=== PATIENT | female | born 1975 | race Caucasian/White ===

== ENCOUNTER 2016-11-17 18:28 | Emergency (ER) | payer SELFPAY ==
[~2016-11-17] VITALS: Ht 167.6 cm; Wt 76.2 kg
[~2016-11-17 18:28] MED LIST: TYLENOL
[2016-11-17 18:47] VITALS: BP 109/70
--- NOTE | 2016-11-17 21:45 | NUR ---
TO ER BED 3
[2016-11-17] MEDS ORDERED: KETOROLAC 30 MG/ML VIAL IM ONE (21:55)
--- NOTE | 2016-11-17 22:00 | NUR ---
PT IS 41/F BIB TO ED WITH C/O GEN WEAKNESS AND HEADACHE X3 DAYS. C/O NAUSEA. PT STATES NO MED HX. DENIES V/D; SKIN IS PINK/WARM/DRY; AAOX4 WITH EVEN AND STEADY GAIT; LUNGS CLEAR BL; HR EVEN AND REGULAR; PT DENIES ANY FEVER, CP, SOB, OR COUGH AT THIS TIME; PATIENT STATES PAIN OF 8/10 AT THIS TIME; VSS; PATIENT POSITIONED FOR COMFORT; HOB ELEVATED; BEDRAILS UP X2; BED DOWN. ER MD MADE AWARE OF PT STATUS.
[2016-11-17 23:39] VITALS: BP 112/69
--- NOTE | 2016-11-17 23:39 | NUR ---
Patient discharged with v/s stable. Written and verbal after care instructions given and explained. Patient alert, oriented and verbalized understanding of instructions. Ambulatory with steady gait. All questions addressed prior to discharge. ID band removed. Patient advised to follow up with PMD. Rx of ACETAMINOPHEN AND [employer] PRENATA MULTI given. Patient educated on indication of medication including possible reaction and side effects. Opportunity to ask questions provided and answered.
== END 2016-11-17 23:39 | disposition home or self-care (01) ==
LOC: MED 18:28
DX: O26.811 Pregnancy related exhaustion and fatigue, first trimester (principal); Z3A.01 Less than 8 weeks gestation of pregnancy

== ENCOUNTER 2016-12-05 10:16 | Emergency (ER) | payer SELFPAY ==
[~2016-12-05] VITALS: Ht 167.6 cm; Wt 73.5 kg
[2016-12-05 10:24] VITALS: BP 135/72
--- NOTE | 2016-12-05 10:49 | NUR ---
PATIENT TO BED 5 AT THIS TIME.
--- NOTE | 2016-12-05 10:50 | NUR ---
41/F BIB FAMILY C/O LOWER BACK PAIN x ONE WEEK. PT STATES SHE IS 9 WEEKS ;PT STATES SHE HAS CONSTANT PAIN AT LOWER BACK AND ABDOMEN;DENIES VAGINAL BLEEDING/SPOTTING;DENIES SOB/CP/DIZZINESS/HEADACHE/F.PT STATES SHE VOMITTED EVERY MORNING;AAOX;NO ACUTE DISTRESS NOTED AT THIS TIME;SKIN WARM TO TOUCH;UNLABORED BREATHING;HOB ELEVTED;SAAFETY PRECAUTION INSTITUTED;;NEEDS ATTENDED;MD MADE AWARE OF PT'S CONDITION.
--- NOTE | 2016-12-05 11:05 | NUR ---
US AT BEDSIDE
--- NOTE | 2016-12-05 11:10 | NUR ---
DR GUTIERREZ AT BEDSIDE
--- NOTE | 2016-12-05 11:44 | NUR ---
PT LYING ON BED COMFORTABLY;NO ACUTE DISTRESS NOTED AT THIS TIME;WILL CONTINUE TO MONITOR PT.
[2016-12-05] MEDS ORDERED: ACETAMINOPHEN EXTRA STRENGTH 500 MG TAB PO ONE (11:50)
--- NOTE | 2016-12-05 11:58 | NUR ---
DR GUTIERREZ AT BEDSIDE
--- NOTE | 2016-12-05 12:11 | NUR ---
Patient discharged with v/s stable. Written and verbal after care instructions given and explained. Patient alert, oriented and verbalized understanding of instructions. Ambulatory with steady gait. All questions addressed prior to discharge. ID band removed. Patient advised to follow up with PMD. Rx of TYLENOL given. Patient educated on indication of medication including possible reaction and side effects. Opportunity to ask questions provided and answered.ADVISED PT TO REFRAIN FROM STRENOUS ACTIVITIES UNTIL PIAN SUBSIDES AND PT AGREED TO IT.
[2016-12-05 12:13] VITALS: BP 109/69
== END 2016-12-05 12:11 | disposition home or self-care (01) ==
LOC: MED 10:16
DX: O26.891 Other specified pregnancy related conditions, first trimester (principal); M54.5 Low back pain; R03.0 Elevated blood-pressure reading, without diagnosis of hypertension; Z3A.11 11 weeks gestation of pregnancy
CPT/HCPCS: 36415; 76801; 80048; 81001; 81025; 84702; 85025; 86900; 86901; 87086; 99285; Q0092

== ENCOUNTER 2021-07-09 09:37 | Emergency (ER) | payer SELFPAY ==
[~2021-07-09] VITALS: Ht 165.1 cm; Wt 79.8 kg
[2021-07-09 09:41] VITALS: BP 113/69
--- NOTE | 2021-07-09 09:46 | NUR ---
PT AMB TO BED 12.
--- NOTE | 2021-07-09 09:58 | NUR ---
45 y/o F BIB son from home c/o dizziness x 5 days. Patient is A&Ox4, ambulatory, reports +ringing of R ear, "pressure" to forehead, blurry vision. Patient reports difficulty ambulating d/t dizziness. Denies nausea, vomiting, trauma/falls, chest pain, abdominal pain. Denies any pain at this time; no medications prior to arrival. Skin pink/warm/dry. VSS. Respirations even/unlabored. Bed locked in lowest position, side rails x 1. PMH: hyperlipidemia Meds: [facility]
--- NOTE | 2021-07-09 10:10 | NUR ---
Dr. Andersen is evaluating patient at bedside
[2021-07-09] MEDS ORDERED: MECLIZINE 25 MG TAB PO ONE (10:20)
--- NOTE | 2021-07-09 10:35 | NUR ---
EMT at bedside for EKG
--- NOTE | 2021-07-09 10:40 | NUR ---
Blood sample handed to CPT Pallavi at ER bedside
[2021-07-09 10:50] LABS: BASOPHILS % (AUTO) 0.4 % (0.0-2.0); EOSINOPHILS # (AUTO) 0.2 K/uL (0-0.4); HEMATOCRIT 40.6 % (36-48); HEMOGLOBIN 14.3 g/dL (12.0-16.0); LYMPHOCYTES # (AUTO) 2.2 K/uL (2.5-16.5); LYMPHOCYTES % (AUTO) 28.9 % (20.5-51.1); MEAN CORPUSCULAR HEMOGLOBIN 32 pg (27-31); MEAN CORPUSCULAR HGB CONC 35 g/dL (33-37); MEAN CORPUSCULAR VOLUME 90.3 fL (80-94); MONOCYTES # (AUTO) 0.5 K/uL (0.8-1.0); MONOCYTES % (AUTO) 6.7 % (1.7-9.3); NEUTROPHILS # (AUTO) 4.8 K/uL (1.8-7.7); PLATELET COUNT (AUTO) 193 K/uL (140-450); RED BLOOD CELL COUNT(AUTO) 4.49 MIL/uL (4.20-5.40); RED CELL DISTRIBUTION WIDTH 12.5 % (11.6-13.7); WHITE BLOOD COUNT (AUTO) 7.7 K/uL (4.8-10.8)
[2021-07-09 11:14] LABS: ALBUMIN 3.6 g/dL (3.4-5.0); ANION GAP 13.8 (8-16); CARBON DIOXIDE 27.9 mmol/L (21-32); CREATININE 0.8 mg/dL (0.6-1.3); POTASSIUM 3.7 mmol/L (3.5-5.1); TOTAL BILIRUBIN 0.6 mg/dL (0.0-1.0)
--- NOTE | 2021-07-09 11:50 | NUR ---
[facility]
--- NOTE | 2021-07-09 12:05 | NUR ---
Patient returned from CT by [facility].
[2021-07-09] MEDS ORDERED: MECL-303 PO (12:50)
[2021-07-09 13:15] VITALS: BP 121/74
== END 2021-07-09 13:15 | disposition home or self-care (01) ==
LOC: MED 09:37
DX: R42 Dizziness and giddiness (principal); H93.11 Tinnitus, right ear
CPT/HCPCS: 36415; 70450; 70496; 80053; 85025; 93005; 99285; J8597; Q9967

== ENCOUNTER 2023-01-20 18:21 | Emergency (ER) | payer MEDICAID ==
[~2023-01-20] VITALS: Ht 162.6 cm; Wt 78.9 kg
[~2023-01-20 18:21] MED LIST changes: +MECL-303 PO
[2023-01-20 19:30] VITALS: BP 109/72
[2023-01-20] MEDS ORDERED: HYDROcodone/APAP 5/325 MG 1 TAB TAB PO ONE (20:20)
[2023-01-20] MEDS ORDERED: IBUP-2213 PO (21:03)
[2023-01-20] MEDS ORDERED: ACET-10509 PO (21:03)
== END 2023-01-20 21:23 | disposition home or self-care (01) ==
LOC: MED 18:21
DX: S93.692A Other sprain of left foot, initial encounter (principal); W01.0XXA Fall on same level from slipping, tripping and stumbling without subsequent striking against object, initial encounter; Y93.89 Activity, other specified; Y92.89 Other specified places as the place of occurrence of the external cause; Y99.8 Other external cause status
CPT/HCPCS: 73630; 99283

== ENCOUNTER 2023-02-24 14:14 | Emergency (ER) | payer MEDICAID ==
[~2023-02-24] VITALS: Ht 167.6 cm; Wt 80.7 kg
[~2023-02-24 14:14] MED LIST changes: +ACET-10509 PO; +IBUP-2213 PO
[2023-02-24 16:04] VITALS: BP 110/66
[2023-02-24] MEDS ORDERED: IBUP-2213 PO (16:12)
--- NOTE | 2023-02-24 17:04 | NUR ---
L RING FINGER. LONG FINGER SPLINT APPLIED.
--- NOTE | 2023-02-24 17:06 | NUR ---
Patient discharged with v/s stable. Written and verbal after care instructions FOR FINGER SPRAIN given and explained. Patient alert, oriented and verbalized understanding of instructions. Ambulatory with steady gait. All questions addressed prior to discharge. ID band removed. Patient advised to follow up with PMD. Rx of IBUPROFEN given. Opportunity to ask questions provided and answered. WORK NOTE AND COPY OF XRAY PROVIDED
== END 2023-02-24 17:06 | disposition home or self-care (01) ==
LOC: MED 14:14
DX: S63.615A Unspecified sprain of left ring finger, initial encounter (principal); Z79.899 Other long term (current) drug therapy; W06.XXXA Fall from bed, initial encounter; Y93.89 Activity, other specified; Y92.89 Other specified places as the place of occurrence of the external cause; Y99.8 Other external cause status
CPT/HCPCS: 73140; 99283

== ENCOUNTER 2024-05-05 10:04 | Emergency (ER) | payer MEDICAID, OTHER ==
[~2024-05-05] VITALS: Ht 167.6 cm; Wt 81.7 kg
[~2024-05-05 10:04] MED LIST changes: -ACET-10509 PO; +ACET500T99 PO
[2024-05-05 10:19] VITALS: BP 109/58; PULSE 104; RESP 18; TEMP 99.3; O2SAT 98
--- NOTE | 2024-05-05 10:31 | NUR ---
to bed 6.
--- NOTE | 2024-05-05 10:31 | NUR ---
Patient being evaluated by physician at bedside.
[2024-05-05 10:46] VITALS: O2SAT 98
--- NOTE | 2024-05-05 10:46 | NUR ---
48YO F PRESENTS FOR EVALUATION OF NONBLOODEY VOMITING, DIARRHEA, ABDOMINAL PAIN, BURNING SENSATION BACK PAIN SINCE MIDNIGHT. PT DENIES FEVER, CHILLS, N, V, D, SOB, CP, FLU LIKE SYMPTOMS, URINARY SYMPTOMS. AOX4, AMBULATORY, VSS, HR EVEN/REGULAR, BILAT LUNG CLR, SKIN INTACT/DRY/WARM, NAD NOTED, SAFETY MAINTAINED, CALL LIGHT IN REACH. HX: DENIES NKA
[2024-05-05] MEDS: NACL 0.9% 1,000 ML IV SCH (11:05)
[2024-05-05] MEDS: ONDANSETRON 4 MG/2 ML VIAL IVP ONE (11:05)
[2024-05-05] MEDS: ACETAMINOPHEN EXTRA STRENGTH 500 MG TAB PO ONE (11:06)
[2024-05-05 11:09] LABS: ANION GAP 11.9 (8-16); CALCIUM 8.8 mg/dL (8.5-10.1); CARBON DIOXIDE 26.6 mmol/L (21-32); CREATININE 0.8 mg/dL (0.6-1.3); POTASSIUM 3.5 mmol/L (3.5-5.1)
[2024-05-05 11:13] LABS: ALBUMIN 3.8 g/dL (3.4-5.0); BILIRUBIN,DIRECT 0.3 mg/dL (0.0-0.3); TOTAL BILIRUBIN 1.5 mg/dL (0.0-1.0); TOTAL PROTEIN, SERUM 8.1 g/dL (6.4-8.2)
[2024-05-05 11:23] LABS: BASOPHILS % (AUTO) 0.1 % (0.0-2.0); EOSINOPHILS % (AUTO) 0.1 % (0.0-4.0); HEMATOCRIT 40.7 % (36-48); HEMOGLOBIN 14.2 g/dL (12.0-16.0); LYMPHOCYTES # (AUTO) 0.6 K/uL (2.5-16.5); LYMPHOCYTES % (AUTO) 5.7 % (20.5-51.1); MEAN CORPUSCULAR HEMOGLOBIN 31 pg (27-31); MEAN CORPUSCULAR HGB CONC 35 g/dL (33-37); MEAN CORPUSCULAR VOLUME 88.4 fL (80-94); MONOCYTES # (AUTO) 0.3 K/uL (0.8-1.0); MONOCYTES % (AUTO) 3.4 % (1.7-9.3); NEUTROPHILS # (AUTO) 8.9 K/uL (1.8-7.7); NEUTROPHILS % (AUTO) 90.7 % (42.2-75.2); PLATELET COUNT (AUTO) 186 K/uL (140-450); RED CELL DISTRIBUTION WIDTH 12.5 % (11.6-13.7); WHITE BLOOD COUNT (AUTO) 9.8 K/uL (4.8-10.8)
--- NOTE | 2024-05-05 11:26 | NUR ---
PT TAKEN TO CT VIA [facility]
[2024-05-05 11:30] LABS: APPEARANCE,URINE CLOUDY (CLEAR); BILIRUBIN,URINE NEGATIVE (NEGATIVE); BLOOD, URINE 3+ (NEGATIVE); COLOR,URINE ORANGE (YELLOW); LEUKOCYTE ESTERASE ,URINE 1+ (NEGATIVE); NITRITE, URINE NEGATIVE (NEGATIVE); PROTEIN,URINE TRACE (NEGATIVE); UGLUCOSE NEGATIVE (NEGATIVE); UROBILINOGEN,URINE 0.2 EU/dL (0.2 - 1)
--- NOTE | 2024-05-05 11:33 | NUR ---
PT BACK FROM CT VIA [facility]
[2024-05-05 11:37] LABS: BACTERIA,URINE 10-30 (MOD) /HPF (None Seen)
[2024-05-05 11:38] LABS: MUCUS,URINE 1+ /LPF (None Seen); SQUAMOUS EPITHELIAL CELL,UR 0-3 (FEW) /LPF (0-3 (FEW))
[2024-05-05] MEDS: KETOROLAC 30 MG/ML VIAL IVP ONE (12:14)
[2024-05-05] MEDS ORDERED: ONDA-188 PO (12:23)
[2024-05-05] MEDS ORDERED: CEFP200T20 PO (12:32)
[2024-05-05 12:35] VITALS: BP 104/55; PULSE 88; RESP 15; TEMP 99.3; O2SAT 98
--- NOTE | 2024-05-05 12:41 | NUR ---
Patient discharged with v/s stable. Written and verbal after care instructions given and explained. Patient alert, oriented and verbalized understanding of instructions. Ambulatory with steady gait. All questions addressed prior to discharge. ID band removed. Patient advised to follow up with PMD. Rx of CEFPODOXIME PROXETIL,ZOFRAN given. Opportunity to ask questions provided and answered.
== END 2024-05-05 12:41 | disposition home or self-care (01) ==
LOC: MED 10:04
DX: K52.9 Noninfective gastroenteritis and colitis, unspecified (principal); N39.0 Urinary tract infection, site not specified; Z79.899 Other long term (current) drug therapy
CPT/HCPCS: 36415; 74176; 80048; 80076; 81001; 81025; 83690; 85025; 87086; 96361; 96372; 96374; 99285; J1885; J2405; J7030